=== PATIENT | female | born 1975 | race Caucasian/White ===

== ENCOUNTER 2018-08-13 10:51 | Emergency (ER) | payer OTHER ==
[2018-08-13 10:58] VITALS: BP 121/81; PULSE 93; RESP 18; TEMP 98.1
--- NOTE | 2018-08-13 11:12 | ED ---
General Adult HPI - General Chief complaint: Extremity Injury, Upper Stated complaint: R shoulder injury Time Seen by Provider: 08/13/18 11:01 Source: patient, RN notes reviewed, old records reviewed Mode of arrival: ambulatory Limitations: no limitations - History of Present Illness Initial comments: 43-year-old female presents with acute right shoulder pain. 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 She's had moderate to severe pain since the injury which occurred just prior to arrival. No other trauma noted, no head or neck trauma. Patient is unable to move the shoulder secondary to pain. - Related Data Previous Rx's Medication Instructions Recorded Ibuprofen [Motrin] 600 mg PO Q8HR PRN #24 tab 08/13/18 Allergies Allergy/AdvReac Type Severity Reaction Status Date / Time codeine Allergy Chest Pain Verified 08/13/18 10:59 rizatriptan [From Maxalt] Allergy Anaphylaxis Verified 08/13/18 10:59 sumatriptan [From Imitrex] Allergy Anaphylaxis Verified 08/13/18 10:59 acetaminophen [From Vicodin] AdvReac Nausea & Verified 08/13/18 10:59 Vomiting hydrocodone [From Vicodin] AdvReac Nausea & Verified 08/13/18 10:59 Vomiting Review of Systems ROS Statement: Those systems with pertinent positive or pertinent negative responses have been documented in the HPI. ROS Other: All systems not noted in ROS Statement are negative. Past Medical History Additional Past Medical History / Comment(s): Ulcer, Hiatal Hernia, IBS History of Any Multi-Drug Resistant Organisms: None Reported Past Surgical History: Cholecystectomy Past Psychological History: Bipolar Smoking Status: Current every day smoker Past Alcohol Use History: None Reported Past Drug Use History: None Reported General Exam Limitations: no limitations General appearance: alert, in no apparent distress Head exam: Present: atraumatic, normocephalic Eye exam: Present: normal appearance, PERRL ENT exam: Present: normal exam Neck exam: Present: normal inspection, full ROM. Absent: tenderness, meningismus Respiratory exam: Present: normal lung sounds bilaterally. Absent: respiratory distress, wheezes Cardiovascular Exam: Present: regular rate, normal rhythm GI/Abdominal exam: Present: soft. 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 Absent: full ROM Neurological exam: Present: alert, oriented X3 Psychiatric exam: Present: normal affect, normal mood Skin exam: Present: warm, dry, intact. Absent: cyanosis, diaphoretic Course Vital Signs 08/13/18 10:55 Temperature 98.1 F Pulse Rate 93 Respiratory 18 Rate Blood Pressure 121/81 O2 Sat by Pulse 99 Oximetry Medical Decision Making - Medical Decision Making 43-year-old female with right shoulder injury. There is pain with range of motion on exam, otherwise normal exam, distal pulses intact, normal sensation, normal meteorological aide strength in the hand. X-ray obtained, negative for any acute bony abnormality. Patient is placed in a sling for comfort. She will continue anti- inflammatory medications. If symptoms persist she will require orthopedic follow-up for further imaging. Disposition Clinical Impression: Strain of shoulder Disposition: HOME SELF-CARE Condition: Good Instructions: Shoulder Sprain (ED) Prescriptions: Ibuprofen [Motrin] 600 mg PO Q8HR PRN #24 tab PRN Reason: Pain Is patient prescribed a controlled substance at d/c from ED?: No Referrals: Gail Vaz DO [Primary Care Provider] - 1-2 days Skip Martinez MD [STAFF PHYSICIAN] - 1-2 days Time of Disposition: 12:08
--- NOTE | 2018-08-13 11:53 | XR ---
EXAMINATION TYPE: XR shoulder complete RT , 3 VIEWS DATE OF EXAM ORDERED: 08/13/2018 HISTORY: Pain. COMPARISON: None. FINDINGS: No fracture, dislocation or other acute osseous lesion is seen. IMPRESSION: NO ACUTE OSSEOUS LESION.
== END 2018-08-13 12:21 | disposition home or self-care (01) ==
LOC: EC 10:51
DX: S46.911A Strain of unspecified muscle, fascia and tendon at shoulder and upper arm level, right arm, initial encounter (principal); F17.200 Nicotine dependence, unspecified, uncomplicated; Z88.5 Allergy status to narcotic agent; Z88.8 Allergy status to other drugs, medicaments and biological substances; Z88.6 Allergy status to analgesic agent; X50.9XXA Other and unspecified overexertion or strenuous movements or postures, initial encounter; Y93.89 Activity, other specified; Y92.69 Other specified industrial and construction area as the place of occurrence of the external cause; Y99.0 Civilian activity done for income or pay
CPT/HCPCS: 99284

== ENCOUNTER → 2018-12-20 | Outpatient (CLI) | payer OTHER ==
--- NOTE | 2018-12-21 03:55 | FL ---
EXAMINATION TYPE: Right shoulder fluoroscopic-guided arthrogram injection. DATE OF EXAM: 12/20/2018 HISTORY: 43-year-old female wrenching injury to the right shoulder, persistent pain, assess for lawrence l tear. PROCEDURES: 1. Right shoulder fluoroscopy. 2. Right shoulder arthrogram. Total fluoroscopy time: 30 seconds. Total images: 4. TECHNIQUE: The procedure, risks, and alternatives, were discussed with the patient, who requested that jose miguel riley The consent form was signed, and teach-back occurred. The site/side of the procedure was marked with a line with participation by the patient. The accompan tony paperwork was verified for consistency. A directed history and physical exam was performed prior to the procedure. Medication reconciliation was performed by ancillary personnel. A critical pause was performed with assisting personnel just pr ior to the procedure, and the patient's identity was confirmed using 2 identifiers. Imaging guidance was utilized to select the precise skin entry point just prior to the procedure. The right shoulder was prepped and draped in the usual sterile fashion and local 1% lidocaine anesthe danny was instilled. Under fluoroscopic guidance, a 22 gauge spinal needle was introduced into the ant erior right glenohumeral joint. Appropriate needle tip position was confirmed after a small amount of contrast injection. Approximately 10 ml of a mixture of Isovue 300 iodinated contrast, sterile saline, and Gadavist was i njected into the glenohumeral joint. The needle was then removed. The patient tolerated the procedure well. There was no immediate complication. After the procedure, the patient's condition was unchanged. Estimated blood loss was minimal. Postprocedure radiographs show contrast distention of the glenohumeral joint. No extension of contras t into the subacromial/subdeltoid bursa. Some extension of contrast along the bicipital groove is not ed. There may be mild capsular hypertrophy at the acromioclavicular joint. IMPRESSION: Technically successful right shoulder arthrogram injection for MRI. No immediate complication.
--- NOTE | 2018-12-21 22:20 | MR ---
EXAMINATION TYPE: MR arthrogram shoulder DATE OF EXAM: 12/20/2018 COMPARISON: Radiographs 08/13/2018 and arthrogram injection same day. HISTORY: 43-year-old female referred for right shoulder arthrogram, check for labral tear. Persistent pain after wrenching injury. Technique: Multiplanar, multisequence images of the right shoulder were obtained after intra-articula r injection of a gadolinium mixture. FINDINGS: There is adequate distention of the glenohumeral joint following contrast administration. The biceps anchor is intact. There is no abnormal fluid signal extending into the substance of the la jesus. No paralabral cyst. The long head biceps tendon remains appropriately situated along the bicipital groove. Glenohumeral joint is intact with preserved articular cartilage. The rotator cuff including the supraspinatus, infraspinatus, and subscapularis tendons remain intact. No atrophy of the rotator cuff musculature or muscle edema. There is mild degenerative joint space narrowing at the acromioclavicular joint with marginal spurrin g and moderate capsular hypertrophy. This has mass effect on the underlying myotendinous junction of the supraspinatus with focal muscle indentation. Trace fluid within the subacromial/subdeltoid bursa. No os acromiale or Hill-Sachs deformity. IMPRESSION: 1. No abnormal signal extending into the substance of the glenoid labrum to suggest labral tear. 2. Mild AC joint OA with prominent capsular hypertrophy and inferior spurring mildly impinging onto t he underlying cuff. 3. No rotator cuff tear. No specific abnormality identified.
== END | disposition home or self-care (01) ==
LOC: RADFLMAIN 12:55
PROVIDERS: ATTEND Orthopaedic Surgery
DX: M19.012 Primary osteoarthritis, left shoulder (principal); M75.82 Other shoulder lesions, left shoulder
CPT/HCPCS: 23350; 73040; 73222; J2001; A9585; Q9967